=== PATIENT | female | born 1980 | race Caucasian/White ===

== ENCOUNTER 2019-07-09 05:48 | Emergency (ER) | payer BC ==
[~2019-07-09] VITALS: Ht 185.4 cm; Wt 194.1 kg
[~2019-07-09 05:48] MED LIST: ADVAIR DISKUS; BUTA1CAP60 PO; CIPR500T86 PO; FLUT16SP2 NS; GLYB5TAB3 PO; HYDR-3469 PO; IBUP-1131 PO; METF10007 PO; METH750T94 PO; PREN1TAB59 PO; TAMS0.4C2 PO
[2019-07-09 05:54] VITALS: BP 138/95
--- NOTE | 2019-07-09 05:54 | NUR ---
Arrival Patient arrived to ED room 6 ambulatory with no distress noted. 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 Patient c/o nausea, vomiting and photosensitivity. Migraine is similar to previous migraines. Patient self administered an Imitrex injection and 25mg of Phenergan PO one hour PRODUCT OWNER with no relief after administration. Patient placed on bedside monitor. No vomiting noted during triage assessment. Dr. Peterson notified of patient arrival
[2019-07-09] MEDS ORDERED: TORADOL IM STA (06:09)
[2019-07-09] MEDS ORDERED: PHENERGAN IM STA (06:09)
[2019-07-09] MEDS ORDERED: BENADRYL IM STA (06:09)
--- NOTE | 2019-07-09 06:13 | ER.PDOC ---
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; unrelieved with imitrex injection; headache is her usual migraine headache Timing/Duration: 1-3 hours Severity/Quality: severe, sharp, stabbing Prior Headaches/Recent Trauma: chronic headaches, occasional headaches Associated Symptoms: nausea/vomiting Allergies: Coded Allergies: Penicillins (Verified Allergy, Intermediate, unknown, 03/18/17) Home Meds Active Scripts Tamsulosin Hcl (TAMSULOSIN HCL) 0.4 Mg Cap.er.24h, 0.4 MG PO DAILY24, #15 Prov:DWAYNE CRUZ MD 04/16/17 Ciprofloxacin Hcl (CIPRO) 500 Mg Tablet, 500 MG PO BID, #20 Prov:DWAYNE CRUZ MD 04/07/17 Reported Medications Vits W-Ca,Fe,Fa(<1MG) ( VITAMINS) 1 Each Tablet, 1 TAB PO DAILY, #90 TAB 3 Refills 03/18/17 Butalb/Acetaminophen/Caffeine (Fioricet 50-300-40 mg Capsule) 1 Each Capsule, 1 EACH PO DAILY24 PRN for PAIN, CAPSULE 03/18/17 Past Medical History Medical History: asthma, thyroid disease, other Surgical History: cholecystectomy, , knee, other Social History Drug Use: none Review of Systems Constitutional: no symptoms reported Eyes: photophobia Ears, Nose, Mouth, Throat: no symptoms reported Respiratory: no symptoms reported Cardiovascular: no symptoms reported Gastrointestinal: no symptoms reported Musculoskeletal: no symptoms reported Skin: no symptoms reported Physical Exam General Appearance: Mild Distress (appears acutely uncomfortable) Head/Eyes: eyes nml inspection, no facial swelling, no nystagmus, PERRL Neck: nml inspection, Supple Cardiovascular: Regular Rate, Rhythm Respiratory: lungs clear, normal breath sounds, no respiratory distress, no accessory muscle use Gastrointestinal: Normal Bowel Sounds Cranial Nerves: Normal Hearing, Normal Speech, PERRL Skin: Warm/Dry, Normal Color Lymphatic: No Adenopathy Departure Time of Disposition: 06:16 Disposition: 01 HOME, SELF-CARE Impression: Primary Impression: Migraine headache Condition: Improved Referrals: AURA PRATT MD (PCP) PRIMARY CARE PROVIDER Additional Instructions: Home to rest in a dark quiet place. Follow up with Dr. Pratt. Return to ER if headache worsens, fever, vomiting or any other concerns. Duration or Time Spent with Pa: 10 min Problem Qualifiers Primary Impression: Migraine headache Migraine type: periodic headache syndrome Intractability: not intractable Qualified Codes: G43.C0 - Periodic headache syndromes in child or adult, not intractable KAMARI MAYORGA DO Jul 09, 2019 06:13
[2019-07-09 06:54] VITALS: BP 108/59
== END 2019-07-09 06:58 | disposition home or self-care (01) ==
LOC: ER 05:48
DX: G43.C0 Periodic headache syndromes in child or adult, not intractable (principal); E07.9 Disorder of thyroid, unspecified; J45.909 Unspecified asthma, uncomplicated; Z88.0 Allergy status to penicillin; Z90.49 Acquired absence of other specified parts of digestive tract
CPT/HCPCS: 96372; 99284; J1200; J1885; J2550